=== PATIENT | male | born 1970 | race Two or more races ===

== ENCOUNTER 2018-08-21 15:47 | Emergency (ER) | payer MEDICAID ==
[~2018-08-21] VITALS: Ht 157.5 cm; Wt 72.0 kg
[~2018-08-21 15:47] MED LIST: BENZ-16 PO; NO HOME MEDS
[2018-08-21 15:49] VITALS: BP 157/89
[2018-08-21] MEDS ORDERED: AZIT250T83 PO (17:50)
[2018-08-21] MEDS ORDERED: dexamethasone 0.5 mg/5ml unit-dose oral solution PO STA (17:51)
[2018-08-21] MEDS ORDERED: dexamethasone sod phosphate 10mg/ml inj PO ONE (17:55)
== END 2018-08-21 18:06 | disposition home or self-care (01) ==
LOC: ER 15:47
DX: J02.9 Acute pharyngitis, unspecified (principal); Z79.2 Long term (current) use of antibiotics; Z79.899 Other long term (current) drug therapy
CPT/HCPCS: 99283; J1100; J8540

== ENCOUNTER 2021-02-15 07:26 | Emergency (ER) | payer BC, MEDICAID, OTHER ==
[~2021-02-15] VITALS: Ht 160 cm; Wt 74.6 kg
[2021-02-15 07:30] VITALS: BP 149/83
[2021-02-15] MEDS ORDERED: proparacaine 0.5% ophthalmic drops 15ml RIGHTEYE ONE (07:45)
[2021-02-15] MEDS ORDERED: ERYT1OIN6 RIGHTEYE (08:16)
[2021-02-15] MEDS ORDERED: TETanus/Pertussis (Acell)/Diphther VAC/PF (Tdap-Adult) 0.5ml syringe IMVAC ONE (08:20)
== END 2021-02-15 08:53 | disposition home or self-care (01) ==
LOC: ER 07:27
DX: S05.01XA Injury of conjunctiva and corneal abrasion without foreign body, right eye, initial encounter (principal); H57.11 Ocular pain, right eye; H53.8 Other visual disturbances; Z20.3 Contact with and (suspected) exposure to rabies; Z79.2 Long term (current) use of antibiotics; Z79.899 Other long term (current) drug therapy; X58.XXXA Exposure to other specified factors, initial encounter; Y93.89 Activity, other specified; Y92.89 Other specified places as the place of occurrence of the external cause; Y99.8 Other external cause status
CPT/HCPCS: 90471; 90715; 99283